=== PATIENT | male | born 2000 | race African-American/Black ===

== ENCOUNTER 2020-10-21 11:22 | Outpatient (CLI) | payer BC | END 2020-10-21 11:23 | disposition home or self-care (01) | LOC: CTENTCT 11:22 | PROVIDERS: ATTEND Otolaryngology Plastic Surgery within the Head & Neck | DX: J33.9 Nasal polyp, unspecified (principal) | CPT/HCPCS: 70486 ==

== ENCOUNTER 2020-10-29 09:52 | Outpatient (CLI) | payer BC ==
[2020-10-29 16:53] LABS: SARS-CoV-2 PCR by NAA Not Detected (NotDetected)
== END 2020-10-29 09:53 | disposition home or self-care (01) ==
LOC: LABBT 09:52
PROVIDERS: ATTEND Otolaryngology Plastic Surgery within the Head & Neck
DX: Z01.812 Encounter for preprocedural laboratory examination (principal); J34.2 Deviated nasal septum; J32.9 Chronic sinusitis, unspecified; J30.9 Allergic rhinitis, unspecified; J33.9 Nasal polyp, unspecified; J34.3 Hypertrophy of nasal turbinates; Z20.822 Contact with and (suspected) exposure to COVID-19
CPT/HCPCS: U0003; U0005

== ENCOUNTER 2020-11-03 07:22 | Day surgery (SDC) | payer BC ==
[2020-11-02 11:19] VITALS: BMI 30.9
[2020-11-03] MEDS ORDERED: AFRIN NASAL MIST 15 ML BOT ONE ×2 (07:35→08:44)
[2020-11-03] MEDS ORDERED: Lidocaine 1% w/Epinephrine 1:100K 20 ML VIAL ONE (08:44)
[2020-11-03] MEDS ORDERED: Bacitracin Zinc Ointment 30 gm TUBE ONE (08:44)
[2020-11-03] MEDS ORDERED: Fentanyl 250 MCG/5 ML VIAL ONE (08:54)
[2020-11-03] MEDS ORDERED: Dexamethasone 20 MG/5 ML VIAL ONE (09:03)
[2020-11-03] MEDS ORDERED: Lidocaine 1% PF 5 ML VIAL ONE (09:03)
[2020-11-03] MEDS ORDERED: Glycopyrrolate 0.2 MG/ML 5 ML SYRINGE ONE (09:03)
[2020-11-03] MEDS ORDERED: Rocuronium Bromide 10 MG/ML (10ML VIAL) ONE (09:03)
[2020-11-03] MEDS ORDERED: PROPOFOL 200 MG/20 ML VIAL ONE (09:03)
[2020-11-03] MEDS ORDERED: Ondansetron PF 4 MG/2 ML Vial ONE (09:03)
[2020-11-03] MEDS ORDERED: Fentanyl 100 MCG/2 ML VIAL ONE (11:10)
[2020-11-03] MEDS ORDERED: HYDROcodone/Acetaminophen 5/325 mg Tablet ONE (12:16)
== END 2020-11-03 12:55 | disposition home or self-care (01) ==
LOC: SDC 07:22
PROVIDERS: ATTEND Otolaryngology Plastic Surgery within the Head & Neck
PROC: 09BT8ZZ Excision of Left Frontal Sinus, Via Natural or Artificial Opening Endoscopic (ICD-10-PCS; principal; 2020-11-03)
PROC: 8E09XBZ Computer Assisted Procedure of Head and Neck Region (ICD-10-PCS; principal; 2020-11-03)
PROC: 09BX8ZZ Excision of Left Sphenoid Sinus, Via Natural or Artificial Opening Endoscopic (ICD-10-PCS; principal; 2020-11-03)
PROC: 09BR8ZZ Excision of Left Maxillary Sinus, Via Natural or Artificial Opening Endoscopic (ICD-10-PCS; principal; 2020-11-03)
PROC: 09SM0ZZ Reposition Nasal Septum, Open Approach (ICD-10-PCS; principal; 2020-11-03)
PROC: 09BQ8ZZ Excision of Right Maxillary Sinus, Via Natural or Artificial Opening Endoscopic (ICD-10-PCS; principal; 2020-11-03)
PROC: 09TU8ZZ Resection of Right Ethmoid Sinus, Via Natural or Artificial Opening Endoscopic (ICD-10-PCS; principal; 2020-11-03)
PROC: 09TL0ZZ Resection of Nasal Turbinate, Open Approach (ICD-10-PCS; principal; 2020-11-03)
PROC: 09BS8ZZ Excision of Right Frontal Sinus, Via Natural or Artificial Opening Endoscopic (ICD-10-PCS; principal; 2020-11-03)
PROC: 09BW8ZZ Excision of Right Sphenoid Sinus, Via Natural or Artificial Opening Endoscopic (ICD-10-PCS; principal; 2020-11-03)
PROC: 09TV8ZZ Resection of Left Ethmoid Sinus, Via Natural or Artificial Opening Endoscopic (ICD-10-PCS; principal; 2020-11-03)
DX: J32.9 Chronic sinusitis, unspecified (principal); J30.89 Other allergic rhinitis; J33.8 Other polyp of sinus; J34.2 Deviated nasal septum; J34.3 Hypertrophy of nasal turbinates; J34.89 Other specified disorders of nose and nasal sinuses; Z79.899 Other long term (current) drug therapy
CPT/HCPCS: 87070; 87205; C2625; J1100; J2405; J2704; J3010